=== PATIENT | male | born 1970 | race Caucasian/White ===

== ENCOUNTER 2016-05-11 16:35 | Emergency (ER) | payer OTHER ==
[2016-05-11 16:43] VITALS: BP 141/88
--- NOTE | 2016-05-11 17:33 | RAD ---
INDICATION: Trauma, evaluate for pneumothorax. COMPARISON: There are no prior studies available for comparison. TECHNIQUE: A single PA expiratory film of the chest was obtained. FINDINGS: Cardiac and mediastinal contours appear within normal limits. The lungs are underinflated. There are small bibasilar infiltrates consistent with atelectasis. No pleural effusion or pneumothorax is seen. IMPRESSION: EXPIRATORY EXAM, NO EVIDENCE FOR ACUTE FINDING.
--- NOTE | 2016-05-11 17:34 | RAD ---
INDICATION: Right rib injury. TECHNIQUE: 4 views of the right ribs were obtained. FINDINGS: No fracture or significant focal osseous abnormality is seen. IMPRESSION: NO EVIDENCE FOR FRACTURE.
--- NOTE | 2016-05-11 20:51 | UC ---
Kamlesh Thomas Erika, scribed for Rylee Monk DO on 05/11/16 at 1657 . Cardiac HPI - HPI Summary HPI Summary: Patient is a 45-year-old male presenting to [facility] with a CC of right anterior chest pain. Patient reports that on 05/06/2016, he was skiing wearing a helmet when he hit the ground and landed on his right lateral chest and back. The next day, pt developed right anterior chest pain, which has been constant since then. He denies rib pain and bruising in the area. Today around 14:00, pt developed SOB and lightheadedness. He denies headaches, diaphoresis, dizziness, nausea, vomiting, abdominal pain, hematuria, and pain in the left side of the chest. Symptoms are improved by lying down. Pt states he has had vasovagal symptoms in the past and his experience today was similar. Pt denies significant PMFHx. He drinks daily, and does not smoke. - History of Current Complaint Chief Complaint: UC Stated Complaint: TRUNCAL TRAUMA Hx Obtained From: Patient Onset/Duration: Gradual Onset, Lasting Days, Still Present Timing: Constant Current Severity: Moderate Chest Pain Location: Right Anterior Character: Dull/Aching Aggravating: Position, Movement, Deep Breaths - cough, laughter Alleviating: Position - supine Associated Signs & Symptoms: Positive: Chest Pain - rt sided, Anxiety, SOB, Syncope - near syncope. Negative: Recent Stress, Headaches, Weakness, Dizziness , Swelling, Fever, Diaphoresis, Nausea/Vomiting, Cough, Back Pain, Abdominal Pain - Allergy/Home Medications Allergies/Adverse Reactions: Allergies Allergy/AdvReac Type Severity Reaction Status Date / Time Codeine Allergy Severe See Comment Verified 05/11/16 16:43 Penicillins Allergy Unknown Unknown Verified 05/11/16 16:43 Reaction Details PMH/Surg Hx/FS Hx/Imm Hx - Additional Past Medical History Additional PMH: herniated disc, vaso vagal syncope Endocrine History Of: Denies: Diabetes, Thyroid Disease Cardiovascular History Of: Denies: Cardiac Disorders, Hypertension Respiratory History Of: Denies: COPD, Asthma GI/ History Of: Denies: Ulcer - Surgical History Surgical History: None - Family History Known Family History: Negative: Cardiac Disease, Hypertension, Diabetes - Social History Alcohol Use: Occasionally Substance Use Type: None Smoking Status (MU): Never Smoked Tobacco - Immunization History Most Recent Tetanus Shot: Unknown Review of Systems Constitutional: Negative Skin: Negative Eyes: Negative ENT: Negative Respiratory: Shortness Of Breath Cardiovascular: Chest Pain Gastrointestinal: Negative Genitourinary: Negative Motor: Negative Neurovascular: Negative Musculoskeletal: Negative Neurological: Other - lightheadedness Psychological: Negative All Other Systems Reviewed And Are Negative: Yes Physical Exam Triage Information Reviewed: Yes Appearance: Well-Appearing, No Pain Distress, Well-Nourished Vital Signs: Initial Vital Signs Temp 97.1 F 05/11/16 16:38 Pulse 72 05/11/16 16:38 Resp 18 05/11/16 16:38 BP 141/88 05/11/16 16:38 Pulse Ox 100 05/11/16 16:38 Vital Signs Reviewed: Yes Eyes: Positive: Conjunctiva Clear. Negative: Discharge ENT: Positive: Hearing grossly normal. Negative: Muffled/hoarse voice Neck: Positive: Supple, Nontender Respiratory: Positive: Lungs clear, Normal breath sounds, No respiratory distress, No accessory muscle use Cardiovascular: Positive: RRR, No Murmur Abdomen Description: Positive: Nontender, Soft. Negative: Distended, Guarding Bowel Sounds: Positive: Present Musculoskeletal Exam: Other - Tenderness to right rib 3-5 , worst at costo strenal junction Neurological: Positive: Alert, Muscle Tone Normal Psychological Exam: Normal Psychological: Positive: Age Appropriate Behavior Skin Exam: Other - Warm, dry, normal color Diagnostics - Laboratory Diagnostic Studies Completed/Ordered: EKG at 17:03 - Sinus bradycardia at [address] changes. UA - 1.015, pH 5, all else negative - Radiology CXR Radiology Interpretation Completed By: Radiologist - IMPRESSION: EXPIRATORY EXAM, NO EVIDENCE FOR ACUTE FINDING. Ribs XR Radiology Interpretation Completed By: Radiologist - IMPRESSION: NO EVIDENCE FOR FRACTURE. Re-Evaluation - Re-Evaluation First Eval Re-Evaluation Time: 17:44 Change: Improved Comment: Discussed XR, EKG, and UA results. Pt currently rates pain a 6/10. He reports that pain is aggravated by deep breathing and coughing. He denies radiation of the pain, and denies pain anywhere else. Discussed treatment options. - Assessment/Plan Course Of Treatment: ua neg for hematuria - Differential Diagnoses - Chest Pain Differential Diagnosis/HQI/PQRI: Chest Wall, Other: - ptx, rib fx - Clinical Impression Provider Diagnoses: rib contusion Discharge - Discharge Plan Condition: Stable Disposition: HOME Prescriptions: Naproxen [Naproxen 500 MG TABS] 500 mg PO BID #10 tab traMADol TAB* [Ultram*] 50 mg PO Q8H PRN #14 tab MDD 3 TABS PRN Reason: Pain Patient Education Materials: Rib Contusion (ED) Referrals: Yanci Cervantes MD [Primary Care Provider] - (FOLLOW UP IN 3-5 DAYS IF NOT IMPROVING) Additional Instructions: ANTI-INFLAMMATORY MEDICATION: You have received a prescription for an antiinflammatory agent. This is an excellent, safe drug for pain control. In addition, it has potent antiinflammatory effects which are beneficial, especially in the treatment of injuries, arthritis, or tendonitis. It's best to take this medicine with food. Persons with ulcer disease or allergy to aspirin should notify their physician of this before taking this drug. Take the medication exactly as prescribed. Don't take additional doses unless instructed to do so by your doctor. If you develop wheezing, shortness of breath, hives, faintness, stomach pain, vomiting, or dark black stools, return for re-evaluation at once. ULTRAM (tramadol hydrochloride): Ultram is an excellent drug for pain relief. It is not a narcotic, but it works in a similar way. Ultram can take up to two hours for full effect. Although not addicting, Ultram is best avoided in patients with a history of drug abuse. Ultram should not be used with alcohol, sleeping pills, or narcotics. If you're prone to seizures, Ultram can make you more likely to have a seizure. Ultram can be hazardous when combined with MAO-inhibitor antidepressants (such as Nardil or Parnate). Be sure your doctor is aware of all medicines you are taking. Persons with severe liver or kidney disease should increase the time between doses of Ultram. Discuss this with your doctor if you're uncertain. Side effects of Ultram can include dizziness, nausea, constipation, sleepiness, and itching. (These side effects are also seen with narcotic pain medicines.) Please call your doctor if you have other disturbing effects. The documentation as recorded by the Kamlesh moulton Erika accurately reflects the service I personally performed and the decisions made by , Rylee Monk DO.
== END 2016-05-11 18:05 | disposition home or self-care (01) ==
LOC: UCEAST 16:35
DX: S20.211A Contusion of right front wall of thorax, initial encounter (principal); V00.321A Fall from snow-skis, initial encounter; Y93.23 Activity, snow (alpine) (downhill) skiing, snowboarding, sledding, tobogganing and snow tubing; Y92.9 Unspecified place or not applicable; R42 Dizziness and giddiness; R06.02 Shortness of breath; Z88.5 Allergy status to narcotic agent; Z88.0 Allergy status to penicillin
CPT/HCPCS: 71010; 81002; 93005; 99212; G0463